=== PATIENT | male | born 2000 | race Two or more races ===

== ENCOUNTER 2020-06-23 09:30 | Inpatient (IN) | payer MEDICAID ==
[~2020-06-23] VITALS: Ht 175.3 cm; Wt 72.6 kg
[2020-06-23] MEDS ORDERED: DiphenhydrAMINE HCL 50 MG/ML VIAL IM ONE (10:00)
[2020-06-23] MEDS ORDERED: LORazepam 2 MG/ML VIAL IM ONE (10:00)
[2020-06-23] MEDS ORDERED: HALOPERIDOL LACTATE 5 MG/ML VIAL IM ONE (10:00)
[2020-06-23 12:02] LABS: BASOPHILS % (AUTO) 0.3 % (0.0-2.0); EOSINOPHILS % (AUTO) 0.1 % (1.0-6.0); HEMATOCRIT 38.4 % (41-53); HEMOGLOBIN 13.3 g/dL (13.5-17.5); LYMPHOCYTES % (AUTO) 14.7 % (22.0-44.0); MEAN CORPUSCULAR HGB CONC 34.7 G/dL (31.0-37.0); MEAN CORPUSCULAR VOLUME 87 fL (80-100); MONOCYTES # (AUTO) 0.2 K/uL (0.1-1.0); MONOCYTES % (AUTO) 3.6 % (2.0-9.0); NEUTROPHILS # (AUTO) 5.5 K/uL (1.8-7.7); NEUTROPHILS % (AUTO) 81.3 % (40.0-70.0); PLATELET COUNT (AUTO) 248 K/uL (150-450); RED BLOOD CELL COUNT(AUTO) 4.44 MIL/uL (4.50-5.90); RED CELL DISTRIBUTION WIDTH 13.7 % (11.5-14.5)
[2020-06-23 12:21] LABS: ANION GAP 11 mmol/L (8-16); CALCIUM, TOTAL 9.2 mg/dL (8.8-10.5); CARBON DIOXIDE 25 mmol/L (22-29); CHLORIDE 104 mmol/L (98-107); CREATININE 1.14 mg/dL (0.60-1.30); GLOMERULAR FILTR. RATE CALC > 60 mL/min (>60); GLUCOSE,RANDOM 102 mg/dL (70-110); POTASSIUM 3.6 mmol/L (3.5-5.1); SODIUM SERUM 140 mmol/L (136-145); UREA NITROGEN, BLOOD 10 mg/dL (7-18)
[2020-06-23 12:28] LABS: ALANINE AMINOTRANSFERASE 35 U/L (12-78); ALBUMIN 4.5 g/dL (3.4-5.0); ALKALINE PHOSPHATASE 54 U/L (46-116); ASPARTATE AMINOTRANSFERASE 23 U/L (15-37); BILIRUBIN,TOTAL 0.2 mg/dL (0.1-1.0); TOTAL PROTEIN, SERUM 8.3 g/dL (6.4-8.2)
[2020-06-23] MEDS ORDERED: HALOPERIDOL 5 MG TABLET PO PRN (13:00)
[2020-06-23] MEDS ORDERED: ZOLPIDEM TARTRATE 10 MG TABLET PO PRN (13:00)
[2020-06-23] MEDS ORDERED: LORazepam 2 MG TABLET PO PRN (13:00)
[2020-06-24 03:19] VITALS: BP 155/94
[2020-06-24 08:00] VITALS: BP 147/80
[2020-06-24] MEDS ORDERED: MAGNESIUM HYDROXIDE SUSPENSION 30 ML UDCUP PO PRN (08:00)
[2020-06-24] MEDS ORDERED: IBUPROFEN 400 MG TABLET PO PRN (08:00)
[2020-06-24] MEDS ORDERED: ACETAMINOPHEN 325 MG TABLET PO PRN (08:00)
[2020-06-24] MEDS ORDERED: CloNIDine HCL 0.1 MG TABLET PO PRN (08:00)
[2020-06-24] MEDS ORDERED: LOPERAMIDE HCL 2 MG CAPSULE PO PRN (08:00)
[2020-06-24] MEDS ORDERED: NICOTINE 14 MG/24 HOUR PATCH TD PRN (08:00)
[2020-06-24] MEDS ORDERED: PETROLATUM,WHITE 28 GM JELLY TP PRN (08:00)
[2020-06-24] MEDS ORDERED: ONDANSETRON HCL 4 MG TABLET PO PRN (08:00)
[2020-06-24] MEDS ORDERED: DOCUSATE SODIUM 100 MG CAPSULE PO PRN (08:00)
[2020-06-24] MEDS ORDERED: MAG HYDROX/AL HYDROX/SIMETH ES 30 ML SUSPENSION UDCUP PO PRN (08:00)
[2020-06-24] MEDS ORDERED: GuaiFENesin/D-METHORPHAN [SUGAR-FREE] 200-20MG/10 ML SYRUP UDCUP PO PRN (08:00)
[2020-06-24] MEDS ORDERED: ALBUTEROL SULFATE HFA 90 MCG/PUFF 8 GM INHALER IH PRN (08:00)
[2020-06-24] MEDS: SERTRALINE HCL 50 MG TABLET PO SCH (11:59)
[2020-06-24 19:18] VITALS: BP 150/87
[2020-06-25 02:00] VITALS: BP 136/79
[2020-06-25 09:39] VITALS: BP 145/89
[2020-06-25] MEDS: SERTRALINE HCL 50 MG TABLET PO SCH (10:37)
[2020-06-25 17:13] VITALS: BP 142/93
[2020-06-26 02:41] VITALS: BP 143/92
[2020-06-26 08:00] VITALS: BP 152/84
[2020-06-26] MEDS: SERTRALINE HCL 50 MG TABLET PO SCH (09:46)
[2020-06-26] MEDS ORDERED: SERT50TA12 PO (09:59)
== END 2020-06-26 12:05 | disposition home or self-care (01) | DRG 885 ==
LOC: EMS 09:32 → 3EI 12:59
DX: F32.2 Major depressive disorder, single episode, severe without psychotic features (principal); R45.851 Suicidal ideations; D64.9 Anemia, unspecified; F10.10 Alcohol abuse, uncomplicated; Z91.5 Personal history of self-harm; Z79.899 Other long term (current) drug therapy; F41.9 Anxiety disorder, unspecified; R00.0 Tachycardia, unspecified; R03.0 Elevated blood-pressure reading, without diagnosis of hypertension
CPT/HCPCS: G0480; J1200; J1630; J2060

== ENCOUNTER 2020-08-02 01:30 | Inpatient (IN) | payer MEDICAID ==
[~2020-08-02] VITALS: Ht 172.7 cm; Wt 76.5 kg
[~2020-08-02 01:30] MED LIST: SERT50TA12 PO
[2020-08-02] MEDS ORDERED: HALOPERIDOL 5 MG TABLET PO PRN (03:00)
[2020-08-02 03:08] LABS: APPEARANCE,URINE CLEAR (CLEAR); BILIRUBIN,URINE NEGATIVE (NEGATIVE); GLUCOSE, URINE (UA) NEGATIVE (NEGATIVE); KETONES,URINE NEGATIVE (NEGATIVE); LEUKOCYTE ESTERASE ,URINE NEGATIVE (NEGATIVE); NITRATE,URINE NEGATIVE (NEGATIVE); OCCULT BLOOD,URINE NEGATIVE (NEGATIVE); PROTEIN,URINE NEGATIVE (NEGATIVE); UROBILINOGEN,URINE 0.2 mg/dL (<=1.0)
[2020-08-02 03:09] LABS: BASOPHILS % (AUTO) 0.4 % (0.0-2.0); EOSINOPHILS % (AUTO) 0 % (1.0-6.0); HEMATOCRIT 38.1 % (41-53); LYMPHOCYTES # (AUTO) 1.3 K/uL (1.0-4.8); LYMPHOCYTES % (AUTO) 18.8 % (22.0-44.0); MEAN CORPUSCULAR HEMOGLOBIN 29.7 pg (26.0-34.0); MEAN CORPUSCULAR HGB CONC 34.2 G/dL (31.0-37.0); MEAN CORPUSCULAR VOLUME 87 fL (80-100); MONOCYTES # (AUTO) 0.3 K/uL (0.1-1.0); MONOCYTES % (AUTO) 3.7 % (2.0-9.0); NEUTROPHILS # (AUTO) 5.5 K/uL (1.8-7.7); NEUTROPHILS % (AUTO) 77.1 % (40.0-70.0); PLATELET COUNT (AUTO) 263 K/uL (150-450); RED BLOOD CELL COUNT(AUTO) 4.39 MIL/uL (4.50-5.90); RED CELL DISTRIBUTION WIDTH 13.4 % (11.5-14.5)
[2020-08-02 03:12] LABS: AMPHET/METH SCREEN,URINE NEGATIVE (NEGATIVE); BARBITURATE SCREEN, URINE NEGATIVE (NEGATIVE); BENZODIAZEPINES SCREEN,URINE NEGATIVE (NEGATIVE); CANNABINOID SCREEN,URINE NEGATIVE (NEGATIVE); COCAINE SCREEN,URINE POSITIVE (NEGATIVE); METHADONE SCREEN, URINE NEGATIVE (NEGATIVE); OPIATE SCREEN,URINE NEGATIVE (NEGATIVE)
[2020-08-02 03:16] LABS: ANION GAP 14 mmol/L (8-16); CALCIUM, TOTAL 9.6 mg/dL (8.8-10.5); CARBON DIOXIDE 25 mmol/L (22-29); CHLORIDE 102 mmol/L (98-107); CREATININE 1.13 mg/dL (0.60-1.30); GLOMERULAR FILTR. RATE CALC > 60 mL/min (>60); GLUCOSE,RANDOM 104 mg/dL (70-110); POTASSIUM 3.6 mmol/L (3.5-5.1); SODIUM SERUM 141 mmol/L (136-145); UREA NITROGEN, BLOOD 10 mg/dL (7-18)
[2020-08-02 03:16] LABS: PHENCYCLIDINE SCREEN,URINE NEGATIVE (NEGATIVE)
[2020-08-02 03:19] LABS: ALANINE AMINOTRANSFERASE 33 U/L (12-78); ALBUMIN 4.6 g/dL (3.4-5.0); ALKALINE PHOSPHATASE 61 U/L (46-116); ASPARTATE AMINOTRANSFERASE 21 U/L (15-37); BILIRUBIN,TOTAL 0.3 mg/dL (0.1-1.0); TOTAL PROTEIN, SERUM 8.3 g/dL (6.4-8.2)
[2020-08-02 10:29] VITALS: BP 126/76
[2020-08-02] MEDS ORDERED: NICOTINE 14 MG/24 HOUR PATCH TD PRN (13:15)
[2020-08-02] MEDS ORDERED: ALBUTEROL SULFATE HFA 90 MCG/PUFF 8 GM INHALER IH PRN (13:15)
[2020-08-02] MEDS ORDERED: LOPERAMIDE HCL 2 MG CAPSULE PO PRN (13:15)
[2020-08-02] MEDS ORDERED: ACETAMINOPHEN 325 MG TABLET PO PRN (13:15)
[2020-08-02] MEDS ORDERED: ONDANSETRON HCL 4 MG TABLET PO PRN (13:15)
[2020-08-02] MEDS ORDERED: IBUPROFEN 400 MG TABLET PO PRN (13:15)
[2020-08-02] MEDS ORDERED: GuaiFENesin/D-METHORPHAN [SUGAR-FREE] 200-20MG/10 ML SYRUP UDCUP PO PRN (13:15)
[2020-08-02] MEDS ORDERED: MAGNESIUM HYDROXIDE SUSPENSION 30 ML UDCUP PO PRN (13:15)
[2020-08-02] MEDS ORDERED: MAG HYDROX/AL HYDROX/SIMETH ES 30 ML SUSPENSION UDCUP PO PRN (13:15)
[2020-08-02] MEDS ORDERED: CloNIDine HCL 0.1 MG TABLET PO PRN (13:15)
[2020-08-02] MEDS ORDERED: DOCUSATE SODIUM 100 MG CAPSULE PO PRN (13:15)
[2020-08-02] MEDS ORDERED: PETROLATUM,WHITE 28 GM JELLY TP PRN (13:15)
[2020-08-02 16:02] VITALS: BP 139/73
[2020-08-02] MEDS: SERTRALINE HCL 100 MG TABLET PO SCH (16:49)
[2020-08-03 07:10] VITALS: BP 126/69
[2020-08-03 08:04] VITALS: BP 125/84
[2020-08-03] MEDS: SERTRALINE HCL 100 MG TABLET PO SCH (08:27)
[2020-08-03 08:35] LABS: CHOL/HDL RATIO 2.7 (4.2-7.3)
[2020-08-03 16:04] VITALS: BP 116/81
[2020-08-03] MEDS: LORazepam 2 MG TABLET PO PRN (20:05)
[2020-08-04 05:42] VITALS: BP 122/78
[2020-08-04] MEDS: SERTRALINE HCL 100 MG TABLET PO SCH (08:34)
[2020-08-04] MEDS: LORazepam 2 MG TABLET PO PRN (08:34)
[2020-08-04 09:06] VITALS: BP 115/51
[2020-08-04 16:21] VITALS: BP 139/95
[2020-08-04] MEDS: ZOLPIDEM TARTRATE 10 MG TABLET PO PRN (22:03)
[2020-08-05 05:07] VITALS: BP 128/84
[2020-08-05] MEDS: SERTRALINE HCL 100 MG TABLET PO SCH (08:00)
[2020-08-05 08:06] VITALS: BP 134/92
[2020-08-05 16:01] VITALS: BP 130/88
[2020-08-05] MEDS: ZOLPIDEM TARTRATE 10 MG TABLET PO PRN (20:41)
[2020-08-06 04:52] VITALS: BP 120/64
[2020-08-06] MEDS: SERTRALINE HCL 100 MG TABLET PO SCH (08:00)
[2020-08-06 08:45] VITALS: BP 141/97
[2020-08-06] MEDS ORDERED: SERT100T12 PO (11:59)
== END 2020-08-06 14:00 | disposition home or self-care (01) | DRG 751 ==
LOC: EMS 01:30 → B3A 08:25
PROVIDERS: ADMIT Psychiatry & Neurology Psychiatry; ATTEND Psychiatry & Neurology Psychiatry
DX: F33.2 Major depressive disorder, recurrent severe without psychotic features (principal); R45.851 Suicidal ideations; G44.209 Tension-type headache, unspecified, not intractable; F10.10 Alcohol abuse, uncomplicated; D64.9 Anemia, unspecified; F41.9 Anxiety disorder, unspecified; F14.10 Cocaine abuse, uncomplicated; Z91.5 Personal history of self-harm; Z03.818 Encounter for observation for suspected exposure to other biological agents ruled out
CPT/HCPCS: 87426; G0480

== ENCOUNTER 2021-07-18 18:27 | Inpatient (IN) | payer MEDICAID ==
[~2021-07-18] VITALS: Ht 177.8 cm; Wt 86.6 kg
[~2021-07-18 18:27] MED LIST changes: +SERT-162 PO; -SERT50TA12 PO
[2021-07-18] MEDS ORDERED: LORazepam 2 MG TABLET PO PRN (20:30)
[2021-07-18 21:02] VITALS: BP 143/79
[2021-07-18] MEDS: ZOLPIDEM TARTRATE 10 MG TABLET PO PRN (21:10)
[2021-07-18] MEDS: BACITRACIN 28 GM OINTMENT TP SCH (22:59)
[2021-07-19 06:51] VITALS: BP 150/88
[2021-07-19] MEDS ORDERED: ACETAMINOPHEN 325 MG TABLET PO PRN (07:45)
[2021-07-19] MEDS ORDERED: PETROLATUM,WHITE 28 GM JELLY TP PRN (07:45)
[2021-07-19] MEDS ORDERED: GuaiFENesin/D-METHORPHAN [SUGAR-FREE] 200-20MG/10 ML SYRUP UDCUP PO PRN (07:45)
[2021-07-19] MEDS ORDERED: LOPERAMIDE HCL 2 MG CAPSULE PO PRN (07:45)
[2021-07-19] MEDS ORDERED: NICOTINE 14 MG/24 HOUR PATCH TD PRN (07:45)
[2021-07-19] MEDS ORDERED: CloNIDine HCL 0.1 MG TABLET PO PRN (07:45)
[2021-07-19] MEDS ORDERED: MAG HYDROX/AL HYDROX/SIMETH ES 30 ML SUSPENSION UDCUP PO PRN (07:45)
[2021-07-19] MEDS ORDERED: DOCUSATE SODIUM 100 MG CAPSULE PO PRN (07:45)
[2021-07-19] MEDS ORDERED: ONDANSETRON HCL 4 MG TABLET PO PRN (07:45)
[2021-07-19] MEDS ORDERED: MAGNESIUM HYDROXIDE SUSPENSION 30 ML UDCUP PO PRN (07:45)
[2021-07-19] MEDS ORDERED: ALBUTEROL SULFATE HFA 90 MCG/PUFF 8 GM INHALER IH PRN (07:45)
[2021-07-19] MEDS ORDERED: IBUPROFEN 400 MG TABLET PO PRN (07:45)
[2021-07-19] MEDS: BACITRACIN 28 GM OINTMENT TP SCH ×2 (08:44→16:46)
[2021-07-19 08:47] VITALS: BP 128/72
[2021-07-19] MEDS: SERTRALINE HCL 100 MG TABLET PO SCH (09:55)
[2021-07-19 16:14] VITALS: BP 122/68
[2021-07-20 03:27] VITALS: BP 120/63
[2021-07-20] MEDS: BACITRACIN 28 GM OINTMENT TP SCH ×2 (08:58→16:54)
[2021-07-20] MEDS: SERTRALINE HCL 100 MG TABLET PO SCH (08:58)
[2021-07-20 09:25] VITALS: BP 121/83
[2021-07-20 16:13] VITALS: BP 125/62
[2021-07-21 04:30] VITALS: BP 123/69
[2021-07-21 07:35] LABS: BASOPHILS % (AUTO) 0.6 % (0.0-2.0); EOSINOPHILS % (AUTO) 1.5 % (1.0-6.0); HEMATOCRIT 41.9 % (41-53); HEMOGLOBIN 14.6 g/dL (13.5-17.5); LYMPHOCYTES # (AUTO) 2.5 K/uL (1.0-4.8); MEAN CORPUSCULAR HEMOGLOBIN 29.8 pg (26.0-34.0); MEAN CORPUSCULAR HGB CONC 34.8 G/dL (31.0-37.0); MEAN CORPUSCULAR VOLUME 86 fL (80-100); MONOCYTES # (AUTO) 0.4 K/uL (0.1-1.0); MONOCYTES % (AUTO) 6.5 % (2.0-9.0); NEUTROPHILS # (AUTO) 3.2 K/uL (1.8-7.7); NEUTROPHILS % (AUTO) 51.4 % (40.0-70.0); PLATELET COUNT (AUTO) 268 K/uL (150-450); RED CELL DISTRIBUTION WIDTH 12.5 % (11.5-14.5)
[2021-07-21 08:10] LABS: ANION GAP 14 mmol/L (8-16); CARBON DIOXIDE 28 mmol/L (22-29); CHLORIDE 99 mmol/L (98-107); CHOLESTEROL 196 mg/dL (131-200); POTASSIUM 4.4 mmol/L (3.5-5.1); SODIUM SERUM 141 mmol/L (136-145); THYROID STIMULATING HORMONE 2.03 uIU/mL (0.36-3.74)
[2021-07-21 08:26] VITALS: BP 143/80
[2021-07-21 09:01] LABS: ALANINE AMINOTRANSFERASE 56 U/L (12-78); ALBUMIN 4.5 g/dL (3.4-5.0); ASPARTATE AMINOTRANSFERASE 25 U/L (15-37); BILIRUBIN,TOTAL 0.7 mg/dL (0.1-1.0); CALCIUM, TOTAL 9.6 mg/dL (8.8-10.5); FREE T4 (FREE THYROXINE) 0.97 ng/dL (0.76-1.46); GLOMERULAR FILTR. RATE CALC > 60 mL/min (>60); GLUCOSE,RANDOM 85 mg/dL (70-110); UREA NITROGEN, BLOOD 16 mg/dL (7-18)
[2021-07-21] MEDS: SERTRALINE HCL 100 MG TABLET PO SCH (09:09)
[2021-07-21] MEDS: BACITRACIN 28 GM OINTMENT TP SCH ×2 (09:09→16:49)
[2021-07-21 09:26] LABS: ALKALINE PHOSPHATASE 79 U/L (46-116); CHOL/HDL RATIO 3.4 (4.2-7.3); HDL CHOLESTEROL 58 mg/dL (40-60); LDL CHOL (CALC.) 124 mg/dL (0-130); TOTAL PROTEIN, SERUM 8.9 g/dL (6.4-8.2); TRIGLYCERIDES 71 mg/dL (15-150)
[2021-07-21 16:31] VITALS: BP 117/62
[2021-07-21] MEDS: ZOLPIDEM TARTRATE 10 MG TABLET PO PRN (22:49)
[2021-07-22 06:42] VITALS: BP 145/87
[2021-07-22] MEDS: SERTRALINE HCL 100 MG TABLET PO SCH (09:28)
[2021-07-22] MEDS: BACITRACIN 28 GM OINTMENT TP SCH ×2 (09:29→17:23)
[2021-07-22 09:35] VITALS: BP 152/82
[2021-07-22 10:20] VITALS: BP 138/88
[2021-07-22 16:10] VITALS: BP 133/82
[2021-07-22] MEDS: SERTRALINE HCL 50 MG TABLET PO SCH (17:23)
[2021-07-23 01:14] VITALS: BP 139/82
[2021-07-23 07:43] LABS: COVID AG,FIA SOURCE NASOPHARYNGEAL
[2021-07-23 08:11] VITALS: BP 139/77
[2021-07-23] MEDS: SERTRALINE HCL 50 MG TABLET PO SCH (08:49)
[2021-07-23] MEDS: BACITRACIN 28 GM OINTMENT TP SCH (08:50)
[2021-07-23] MEDS ORDERED: SERT-162 PO (11:29)
== END 2021-07-23 13:30 | disposition home or self-care (01) | DRG 751 ==
LOC: B3A 20:19 → B2S 07-22 14:17
DX: F33.2 Major depressive disorder, recurrent severe without psychotic features (principal); R45.851 Suicidal ideations; F10.10 Alcohol abuse, uncomplicated; F12.10 Cannabis abuse, uncomplicated; F14.10 Cocaine abuse, uncomplicated; Z20.822 Contact with and (suspected) exposure to COVID-19; F41.9 Anxiety disorder, unspecified; Z59.0 Homelessness; Z79.899 Other long term (current) drug therapy
CPT/HCPCS: 80053; 80061; 84439; 84443; 85025; G0480